=== PATIENT | male | born 1975 | race Caucasian/White ===

== ENCOUNTER 2018-10-30 19:41 | Emergency (ER) | payer OTHER ==
[2018-10-30] MEDS ORDERED: LIDOCAINE 1%/EPI (MDV) 50 ML INJ INJ (21:30)
[2018-10-30] MEDS: LIDOCAINE 1%/EPI 30 ML INJ INJ (21:54)
== END 2018-10-30 22:17 | disposition home or self-care (01) ==
LOC: FTE 22:17
DX: I83.892 Varicose veins of left lower extremity with other complications (principal); I83.92 Asymptomatic varicose veins of left lower extremity
CPT/HCPCS: 12001; 99282-25